=== PATIENT | male | born 1965 | race Caucasian/White ===

== ENCOUNTER 2020-07-20 05:37 | Emergency (ER) | payer OTHER ==
[2020-07-20 05:58] VITALS: BMI 28.0
[2020-07-20 06:36] LABS: BASO % 0.8 % (0-2.0); EOS % 3.1 % (0-4.5); HEMATOCRIT 45.1 % (35.4-49); HEMOGLOBIN 15.7 GM/dL (11.7-16.9); LYMPH % 20.4 % (8-40); MCH 34.8 pg (25.7-33.7); MCHC 34.8 g/dl (32.0-35.9); MEAN PLT VOLUME 7.3 fl (7.5-11.1); MONO % 10.4 % (3.8-10.2); NEUT % 65.3 % (42.8-82.8); PLATELET COUNT 230 K/MM3 (134-434); RBC 4.51 M/mm3 (4.00-5.60); RDW 13.3 % (11.9-15.9); WHITE BLOOD COUNT 5.6 K/mm3 (4.0-10.0)
[2020-07-20 06:43] LABS: INR 0.9 (0.83-1.09); PROTHROMBIN TIME (PATIENT) 10.9 SEC (9.7-13.0)
[2020-07-20 06:46] LABS: ACTIVATED PTT 27.4 SECONDS (25.2-36.5)
[2020-07-20 07:01] LABS: CHLORIDE 105 mmol/L (98-107); POTASSIUM 5.1 mmol/L (3.5-5.1); SODIUM 138 mmol/L (136-145)
[2020-07-20 07:03] LABS: CALCIUM 8.9 mg/dL (8.5-10.1)
[2020-07-20 07:04] LABS: ALBUMIN 3.8 g/dl (3.4-5.0); ANION GAP 3 MMOL/L (8-16); BLOOD UREA NITROGEN 14.9 mg/dL (7-18); CO2 30 mmol/L (21-32); GLUCOSE,RANDOM 106 mg/dL (74-106)
[2020-07-20 07:07] LABS: CREATININE 1.1 mg/dL (0.55-1.3); SGOT/AST 28 U/L (15-37); SGPT/ALT 31 U/L (13-61)
[2020-07-20 07:08] LABS: TOT PROT 7.5 g/dl (6.4-8.2)
[2020-07-20 07:09] LABS: BILIRUBIN,TOTAL 1.6 mg/dL (0.2-1)
[2020-07-20 07:10] LABS: ALK PHOS 73 U/L (45-117)
[2020-07-20 10:54] VITALS: BP 115/67; PULSE 78; TEMP 98.1
== END 2020-07-20 11:05 ==
LOC: JER 05:37
DX: R07.82 Intercostal pain (principal)
CPT/HCPCS: 36415; 71045-TC-FY; 80053; 84484; 85025; 85610; 85730; 93005; 93010; 99285-25; C9803; U0003; U0005